=== PATIENT | male | born 1990 | race Caucasian/White ===

== ENCOUNTER 2020-01-10 21:53 | Emergency (ER) | payer MEDICAID ==
[~2020-01-10] VITALS: Ht 175.3 cm; Wt 65.9 kg
[2020-01-10] MEDS ORDERED: diltiazem 30mg tablet PO ONE (22:45)
[2020-01-10 22:46] LABS: PARTIAL THROMBOPLASTIN TIME 29 SECONDS (22-32)
[2020-01-10 22:47] LABS: ALANINE AMINOTRANSFERASE 39 U/L (12-78); ALBUMIN 4.1 G/DL (3.4-5.0); ALBUMIN/GLOBULIN RATIO 1.6 (1.1-1.5); ALKALINE PHOSPHATASE 49 IU/L (46-116); ANION GAP 7 (8-16); ASPARTATE AMINO TRANSFERASE 24 U/L (10-37); BLOOD UREA NITROGEN 18 MG/DL (7-18); BUN/CREATININE RATIO 13.6 (5.4-32.0); CALCIUM 8.9 MG/DL (8.5-10.1); CHLORIDE 108 MMOL/L (99-107); CREATININE 1.32 MG/DL (0.60-1.10); GLUCOSE 111 MG/DL (70-104); POTASSIUM 3.9 MMOL/L (3.5-5.1); SODIUM 143 MMOL/L (135-145); TOTAL CARBON DIOXIDE 28.3 MMOL/L (24-32); TOTAL PROTEIN 6.6 G/DL (6.4-8.2); eGFR 63 ML/MIN
[2020-01-10 22:48] LABS: C-REACTIVE PROTEIN < 0.05 MG/DL (0.0-0.5)
[2020-01-10 23:07] VITALS: BP 110/79
[2020-01-10 23:42] LABS: EOSINOPHILS # (AUTO) 0.1 X10'3 (0-0.9); HEMOGLOBIN 14.2 g/dl (14.0-17.9); LYMPHOCYTES # (AUTO) 1.7 X10'3 (1.1-4.8); LYMPHOCYTES % (AUTO) 41.1 % (21-51); MEAN PLATELET VOLUME 6.9 FL (7.4-10.4); MONOCYTES # (AUTO) 0.3 X10'3 (0-0.9); MONOCYTES % (AUTO) 6.7 % (2-12); NEUTROPHILS % (AUTO) 49.2 % (42-75); PLATELET COUNT 193 X10'3 (140-440); RED BLOOD COUNT 4.76 X10'6 (4.70-6.10)
[2020-01-10 23:43] LABS: HEMATOCRIT 40.1 % (42.0-52.0); MEAN CORPUSCULAR HEMOGLOBIN 29.7 PG (27.0-31.0); MEAN CORPUSCULAR HGB CONC 35.3 g/dL (33.0-36.5); MEAN CORPUSCULAR VOLUME 84.2 FL (78-98); RED CELL DISTRIBUTION WIDTH 13.2 % (11.5-14.5)
[2020-01-11] MEDS ORDERED: DILT-88 PO (00:20)
[2020-01-11 00:49] LABS: PLATELET ESTIMATE NORMAL; TOTAL CELLS COUNTED 100
[2020-01-11 00:50] LABS: SMUDGE CELLS 1+
[2020-01-11 00:52] LABS: SPHEROCYTES FEW
== END 2020-01-11 01:17 | disposition home or self-care (01) ==
LOC: ER 21:54
DX: R00.2 Palpitations (principal); Z72.89 Other problems related to lifestyle; Z79.899 Other long term (current) drug therapy
CPT/HCPCS: 36415; 71045; 80053; 83735; 85025; 85610; 85651; 85730; 86140; 93005; 99285

== ENCOUNTER 2020-01-15 12:42 | Emergency (ER) | payer MEDICAID ==
[~2020-01-15] VITALS: Ht 175.3 cm; Wt 63.2 kg
[~2020-01-15 12:42] MED LIST: DILT-88 PO
[2020-01-15 13:17] LABS: BASOPHILS % (AUTO) 0.6 % (0-1); EOSINOPHILS # (AUTO) 0.1 X10'3 (0-0.9); EOSINOPHILS % (AUTO) 1.5 % (0-6); HEMATOCRIT 46.2 % (42.0-52.0); HEMOGLOBIN 16.4 g/dl (14.0-17.9); LYMPHOCYTES # (AUTO) 1.2 X10'3 (1.1-4.8); LYMPHOCYTES % (AUTO) 31.7 % (21-51); MEAN CORPUSCULAR HEMOGLOBIN 29.7 PG (27.0-31.0); MEAN CORPUSCULAR HGB CONC 35.5 g/dL (33.0-36.5); MEAN CORPUSCULAR VOLUME 83.9 FL (78-98); MEAN PLATELET VOLUME 6.7 FL (7.4-10.4); MONOCYTES # (AUTO) 0.3 X10'3 (0-0.9); MONOCYTES % (AUTO) 7.9 % (2-12); NEUTROPHILS # (AUTO) 2.2 X10'3 (1.8-7.7); NEUTROPHILS % (AUTO) 58.3 % (42-75); PLATELET COUNT 196 X10'3 (140-440); RED CELL DISTRIBUTION WIDTH 13.6 % (11.5-14.5); WHITE BLOOD COUNT 3.8 X10'3 (4.5-11.0)
[2020-01-15] MEDS ORDERED: metoprolol tartrate 50mg tablet PO ONE (13:20)
[2020-01-15 13:33] LABS: ALANINE AMINOTRANSFERASE 48 U/L (12-78); ALBUMIN 4.1 G/DL (3.4-5.0); ALBUMIN/GLOBULIN RATIO 1.5 (1.1-1.5); ALKALINE PHOSPHATASE 52 IU/L (46-116); ANION GAP 5 (8-16); ASPARTATE AMINO TRANSFERASE 27 U/L (10-37); BILIRUBIN,TOTAL 0.5 MG/DL (0.1-1.0); BLOOD UREA NITROGEN 21 MG/DL (7-18); BUN/CREATININE RATIO 14.4 (5.4-32.0); CALCIUM 9.2 MG/DL (8.5-10.1); CHLORIDE 108 MMOL/L (99-107); CREATININE 1.46 MG/DL (0.60-1.10); GLUCOSE 118 MG/DL (70-104); POTASSIUM 4.2 MMOL/L (3.5-5.1); SODIUM 141 MMOL/L (135-145); TOTAL PROTEIN 6.9 G/DL (6.4-8.2); eGFR 56 ML/MIN
[2020-01-15] MEDS ORDERED: METO-467 PO (14:29)
[2020-01-15 14:51] VITALS: BP 129/93
== END 2020-01-15 14:53 | disposition home or self-care (01) ==
LOC: ER 12:42
DX: I49.8 Other specified cardiac arrhythmias (principal); Z79.899 Other long term (current) drug therapy
CPT/HCPCS: 36415; 71045; 80053; 84484; 85025; 93005; 99285

== ENCOUNTER 2020-11-08 23:36 | Emergency (ER) | payer MEDICAID ==
[~2020-11-08] VITALS: Ht 175.3 cm; Wt 63.6 kg
[~2020-11-08 23:36] MED LIST changes: +METO-467 PO
[2020-11-09 00:01] VITALS: BP 122/75
[2020-11-09] MEDS ORDERED: diazepam 5mg tablet PO ONE (01:15)
== END 2020-11-09 01:34 | disposition home or self-care (01) ==
LOC: ER 23:40
DX: M62.838 Other muscle spasm (principal); M25.511 Pain in right shoulder; M54.2 Cervicalgia; Z79.899 Other long term (current) drug therapy; Z72.89 Other problems related to lifestyle
CPT/HCPCS: 99283